=== PATIENT | male | born 1985 | race African-American/Black ===

== ENCOUNTER 2019-03-30 20:15 | Emergency (ER) | payer SELFPAY ==
[~2019-03-30] VITALS: Ht 177.8 cm; Wt 65.0 kg
[~2019-03-30 20:15] MED LIST: IBUP-1542 PO
[2019-03-30 20:33] VITALS: Ht 177.8 cm; Wt 65.0 kg
[2019-03-30] MEDS ORDERED: SOD CHLORIDE 0.9% 500 ML IV STA (20:34)
[2019-03-30] MEDS ORDERED: PHEN300C2 PO (20:36)
--- NOTE | 2019-03-30 20:37 | ERD ---
ER Documentation Chief Complaint Chief Complaint witnessed seizure after using meth, tonic/clonic, no trauma. hx seizures HPI This is a 33-year-old man with a history of seizure disorder last seizure a few days ago presenting with tonic-clonic seizure activity today. Patient states for the last few days he has been using methamphetamines and has a history of methamphetamine abuse and also stopped using his Dilantin about 3 days ago because he ran out of his prescriptions. He states he has multiple seizures per week even when he uses medications and especially when he uses methamphetamine. Patient denies any tongue trauma or bleeding today, no loss of bowel or bladder control, no recent fevers or chills ROS All systems reviewed and are negative except as per history of present illness. Medications Home Meds Active Scripts Phenytoin* Sodium Extended (Dilantin*) 300 Mg Capsule, 300 MG PO BID, #60 CAP Prov:SYL HOLT MD 03/30/19 Ibuprofen* (Motrin*) 600 Mg Tab, 600 MG PO Q6, #30 TAB Prov:GABRIELA HOLLOWAY PA-C 01/17/16 Allergies Allergies: Coded Allergies: No Known Allergy (Unverified , 01/17/16) PMhx/Soc History of Surgery: No Anesthesia Reaction: No Hx Neurological Disorder: No Hx Respiratory Disorders: No Hx Cardiac Disorders: No Hx Psychiatric Problems: No Hx Miscellaneous Medical Probl: Yes (PLANTAR FACHITIS) Hx Alcohol Use: Yes Hx Substance Use: Yes Hx Tobacco Use: No FmHx Family History: No diabetes Physical Exam Vitals Vital Signs Date Temp Pulse Resp B/P (MAP) Pulse Ox O2 O2 Flow FiO2 Time Delivery Rate 03/30/19 99.3 92 20 122/80 98 20:33 (94) 03/30/19 97.6 79 15 122/80 100 Room Air 20:30 (94) Physical Exam GENERAL: Well-developed, well-nourished, well-hydrated, anxious, afebrile HEENT: Moist mucous membranes, pink conjunctiva, no cervical spine tenderness or step-off deformities, no goiter, no jaundice or icterus, extraocular movements intact without pain. No submandibular induration, and no pharyngeal erythema NEURO: Alert and oriented 3, cranial nerves II through XII intact bilaterally, pupils equal round reactive to light, no focal deficits or facial asymmetry, sensation intact distally Strength 5/5 in upper and lower extremities bilaterally CARDIAC: Regular rate and rhythm, no murmurs rubs or gallops LUNGS: Clear bilaterally no wheezing crackles or stridor ABDOMEN: Soft nontender, no guarding, no rigidity, no rebound, no psoas sign no obturator sign. Normoactive bowel sounds SKIN: Warm and dry to touch, no abrasions, contusions, or hematomas, no lacerations, no ecchymosis, no target lesions, and without ulcers EXTREMITIES: No clubbing cyanosis or edema, calves are bilaterally symmetrical, no Homans sign, no popliteal cord sign. Distal pulses equal and bilateral PSYCH: Appears anxious Results 24 hrs Current Medications Medications Dose Sig/Nargis Start Time Status Last (Trade) Ordered Route PRN Stop Time Admin Dose Reason Admin Phenytoin 300 mg ONCE ONCE 03/30/19 DC 03/30/19 (Dilantin) PO 21:00 20:57 03/30/19 21:01 Lorazepam 0.5 mg ONCE ONCE 03/30/19 DC 03/30/19 (Ativan) PO 21:00 20:57 03/30/19 21:01 Sodium 500 ml @ Q1H STAT 03/30/19 DC 03/30/19 Chloride 500 mls/hr IV 20:34 20:57 03/30/19 21:33 Procedures/MDM IV line was established patient was placed on court recording monitor rhythm strip revealed a sinus rhythm at about 90 bpm with upright P and T waves. Patient was afebrile Administered 500 cc normal saline IV, lorazepam 0.5 mg p.o., and Dilantin 300 mg p.o. Differential diagnoses considered, included but not limited to acute coronary syndrome, pulmonary embolism, aortic dissection, abdominal aortic aneurysm, sepsis, stroke, meningitis, encephalitis, pneumonia, appendicitis, cholecystitis, bowel obstruction, pyelonephritis, nephrolithiasis, cystitis, as well as metabolic, hematologic, and electrolyte abnormalities. As well as abscess, cellulitis, fractures, and dislocations. Patient feels much better at this time, and vital signs are normal, symptoms have improved. I did give strict instructions to return to the ED if symptoms continue or worsen, patient will otherwise follow-up with primary care physician. Patient understood instructions and agreed to plan. Disclaimer: Inadvertent spelling and grammatical errors are likely due to EHR /dictation software use and do not reflect on the overall quality of patient care. Also, please note that the electronic time recorded on this note does not necessarily reflect the actual time of the patient encounter. Departure Diagnosis: Primary Impression: Methamphetamine abuse Additional Impression: Breakthrough seizure Condition: Good Patient Instructions: Understanding Methamphetamine Abuse and Addiction, Seizure, Recurrent [Adult] SYL HOLT MD March 30, 2019 20:37
[2019-03-30] MEDS ORDERED: PHENYTOIN 100 MG CAP PO ONE (21:00)
[2019-03-30] MEDS ORDERED: LORAZEPAM 0.5 MG TAB PO ONE (21:00)
[2019-03-30 21:57] VITALS: BP 129/71; PULSE 84; RESP 20
== END 2019-03-30 22:10 | disposition home or self-care (01) ==
LOC: E/R 20:15
DX: F15.10 Other stimulant abuse, uncomplicated (principal); G40.909 Epilepsy, unspecified, not intractable, without status epilepticus; R40.2142 Coma scale, eyes open, spontaneous, at arrival to emergency department; R40.2362 Coma scale, best motor response, obeys commands, at arrival to emergency department; R40.2252 Coma scale, best verbal response, oriented, at arrival to emergency department
CPT/HCPCS: 99284; J7040